=== PATIENT | male | born 1965 | race Caucasian/White ===

== ENCOUNTER 2025-01-14 08:57 | Outpatient (OUT) | payer OTHER, SELFPAY ==
--- NOTE | 2025-01-14 09:25 | XR_ITS ---
[facility] [place] [id number] Patient Name: ALISSA ROMANO MRN: [id number] date: 1965 Sex: M Assigned Patient Location: [facility] Current Patient Location: [facility] Accession/Order Number: [id number] Exam Date: 01/14/2025 10:16 Report Date: 01/14/2025 10:17 At the request of: CORNEL SUERO Procedure: XR lumbar spine 2-3V XR lumbar spine 2-3V 01/14/2025 9:38 AM SIGNS AND SYMPTOMS: ^Acute Right Sided Low Back Pain PROTOCOLS: Frontal and lateral radiographs of the lumbar spine COMPARISON: None FINDINGS: The alignment, development and bony structures are normal. There is no fracture or destructive lesion. There is mild disc height loss at L5-S1. There is mild disc height loss at L2-L3. There is accompanying anterior osteophyte formation. The sacrum and sacroiliac joints are normal. XR/XR lumbar spine 2-3V IMPRESSION: No fracture or subluxation. Mild disc degenerative changes are noted with accompanying endplate osteophyte formation at L2-L3 and L5-S1. Impression dictated by: Adilson Mcgraw M.D. 01/14/2025 10:17 AM Dictation Location[email or web address] Electronically authenticated by: [id number] Y Date: 01/14/2025 10:17
== END 2025-01-14 08:58 | disposition home or self-care (01) ==
LOC: RAD 08:57
PROVIDERS: PCP Internal Medicine; Visit Provider Internal Medicine
DX: M54.50 Low back pain, unspecified (principal); M51.369 Other intervertebral disc degeneration, lumbar region without mention of lumbar back pain or lower extremity pain
CPT/HCPCS: 72100